=== PATIENT | male | born 2000 | race Caucasian/White ===

== ENCOUNTER 2019-04-04 10:20 | Emergency (ER) | payer OTHER ==
[~2019-04-04] VITALS: Ht 193 cm; Wt 122.9 kg
[2019-04-04 10:40] VITALS: BP 124/51; Ht 193 cm; Wt 122.9 kg
== END 2019-04-04 11:39 | disposition home or self-care (01) ==
LOC: ED 10:20
DX: B34.9 Viral infection, unspecified (principal); R51 Headache